=== PATIENT | male | born 1950 | race Caucasian/White ===

== ENCOUNTER 2016-12-25 20:27 | Emergency (ER) | payer OTHER ==
[2016-12-25 20:42] VITALS: BP 142/92; PULSE 59; TEMP 98.5; BMI 31.4
--- NOTE | 2016-12-25 22:13 | PDOC ---
History of Present Illness - General Chief Complaint: Injury Stated Complaint: FALL/INJURY Time Seen by Provider: 12/25/16 21:29 History Source: Patient Exam Limitations: No Limitations - History of Present Illness Initial Comments: 12/25/16 22:25 CHIEF COMPLAINT: right elbow pain that radiates to right shoulder fall a few weeks ago HISTORY OF PRESENT ILLNESS: Pt. is a 66-year-old male with a history of hypertension and hyperlipidemia here today with his and son due to patient falling approximately 3 weeks ago hitting his right elbow. Patient has a bony deformity slightly distal to right elbow. Patient reports that this area is painful. Patient also reports having pain in his right shoulder since the fall and is unable to raise his arm as he did in the past. He did not get any medical attention after the fall. He denies any numbness of right arm or hand. 12/25/16 22:29 12/25/16 22:32 Occurred: reports: other Severity: reports: moderate Pain Location: reports: upper extremity (rt. elbow area, rt. shoulder) Method of Injury: Yes: fall Modifying Factors: improves with: None Loss of Consciousness: no loss of consciousness Associated Symptoms (Fall): other (raised tender area slightly distal to rt. elbow) Past History - Past Medical History Allergies/Adverse Reactions: Allergies Allergy/AdvReac Type Severity Reaction Status Date / Time No Known Allergies Allergy Verified 12/25/16 20:36 Home Medications: Ambulatory Orders Simvastatin [Zocor -] 40 mg PO HS 06/06/12 Amlodipine Besylate [Norvasc -] 5 mg PO BID 07/24/16 Aspirin [ASA -] 81 mg PO DAILY 07/24/16 Naproxen [Naprosyn -] 500 mg PO BID PRN #13 tablet 12/25/16 Cardiac Disorders: Yes (IRREGULAR HEART BEAT) HTN: Yes Hypercholesterolemia: Yes - Immunization History Immunization Up to Date: No - Psycho/Social/Smoking Cessation Hx Anxiety: No Suicidal Ideation: No Smoking Status: Yes Smoking History: Never smoked Have you smoked in the past 12 months: No Number of Cigarettes Smoked Daily: 0 Information on smoking cessation initiated: No Hx Alcohol Use: No Drug/Substance Use Hx: No Substance Use Type: None Review of Systems - Review of Systems Able to Perform ROS?: Yes Constitutional: No: Symptoms Reported HEENTM: No: Symptoms Reported Respiratory: No: Symptoms reported Cardiac (ROS): No: Symptoms Reported ABD/GI: No: Symptoms Reported : No: Symptoms Reported Musculoskeletal: Yes: Joint Pain (rt. elbow area, rt. shoulder ), Joint Swelling (rt. elbow slightly distal to elbow ), Other (decreased range of motion rt. shoulder) Integumentary: No: Symptoms Reported Neurological: No: Symptoms reported *Physical Exam - Vital Signs Last Vital Signs Temp Pulse Resp BP Pulse Ox 98.5 F 59 L 18 142/92 96 12/25/16 20:33 12/25/16 20:33 12/25/16 20:33 12/25/16 20:33 12/25/16 20:33 - Physical Exam General Appearance: Yes: Appropriately Dressed Neck: negative: Tender, Lymphadenopathy (R), Lymphadenopathy (L), Rigidity, Tender lateral, Tender midline Comments:: 12/25/16 22:29 radial pulse 4 + rt. Musculoskeletal: positive: Normal Inspection. negative: CVA Tenderness, CVA Tenderness (R), CVA Tenderness (L), Decreased Range of Motion, Vertebral Tenderness Extremity: positive: Normal Capillary Refill, Tender (rt, shoulder, rt. elbow), Swelling (slightly distal to rt. elbow non mobile raised firm area palpated approx 2 cm diameter), Other. negative: Normal Range of Motion ( at rt. shoulder slight decreased, full range of motion rt. elbow) Integumentary: positive: Normal Color (rt.arm, hand ) Neurologic: positive: Alert, Normal Response, Respond to painful stimul (rt. arm /hand ). negative: Numbness, Sensory Deficit (rt, arm/hand ) ED Treatment Course - RADIOLOGY Radiology Studies Ordered: Category Date Time Status ELBOW-RIGHT [RAD] Stat Radiology 12/25/16 22:13 Ordered Medical Decision Making - Medical Decision Making 12/25/16 22:32 Pt. is a 66-year-old male with a history of hypertension and hyperlipidemia here today with his and son due to patient falling approximately 3 weeks ago hitting his right elbow. Patient has a bony deformity slightly distal to right elbow. Patient reports that this area is painful. Patient also reports having pain in his right shoulder since the fall and is unable to raise his arm as he did in the past. He did not get any medical attention after the fall. He denies any numbness of right arm or hand. Pain rt. shoulder pain rt. elbow R/O fracture rt. elbow, humerous, shoulder FALL PLAN: xray rt. shoulder bony no abnormality or fracture or dislocation noted per Dr. Amos xray rt. elbow acute fracture or dislocation noted. 8 mm accessory ossicle distal to medial epicondyles noted per Dr. Amos xray rt. humerous no fracture noted Naprosyn 500 mg po now than q12 hr prn pain # 13 Patient to follow up with orthopedist for further evaluation 12/25/16 22:55 *DC/Admit/Observation/Transfer Diagnosis at time of Disposition: Elbow pain, right Fall Qualifiers: Encounter type: initial encounter Qualified Code(s): W19.XXXA - Unspecified fall, initial encounter Shoulder pain, right Qualifiers: Chronicity: acute Qualified Code(s): M25.511 - Pain in right shoulder Upper arm pain Qualifiers: Laterality: right Qualified Code(s): M79.621 - Pain in right upper arm - Discharge Dispostion Disposition: HOME Condition at time of disposition: Stable - Referrals Referrals: STAFF,NOT ON [Primary Care Provider] - Samson Ayoub MD [Staff Physician] - - Patient Instructions Additional Instructions: Avoid strenuous activities using right arm Follow-up with orthopedist within the next 2 days for further evaluation told him that she was seen here prior Return to emergency room if symptoms worsen Patient voiced understanding of discharge instructions and all questions were answered
[2016-12-25] MEDS ORDERED: NAPROXEN 500 MG TABLET (FP) PO ONE (22:58)
[2016-12-25] MEDS ORDERED: NAPROXEN 500 MG TABLET (FP) ONE (22:59)
== END 2016-12-25 23:03 | disposition home or self-care (01) ==
LOC: SUPCPDRO 20:27 → JER 20:27
DX: M25.521 Pain in right elbow (principal); W18.30XA Fall on same level, unspecified, initial encounter; Y93.9 Activity, unspecified; Y92.9 Unspecified place or not applicable; I10 Essential (primary) hypertension; E78.5 Hyperlipidemia, unspecified; M79.621 Pain in right upper arm; R00.9 Unspecified abnormalities of heart beat
CPT/HCPCS: 73030-TC-RT; 73060-TC-RT; 73070-TC-RT; 99281-25

== ENCOUNTER 2017-01-29 06:06 | Day surgery (SDC) | payer OTHER ==
[2017-01-28 12:51] VITALS: BMI 32.1
[2017-01-29 06:53] LABS: MCH 27.1 pg (25.7-33.7); MCHC 34.7 g/dl (32.0-35.9); MEAN CELL VOLUME 78.2 fl (80-96); MEAN PLT VOLUME 9.6 fl (7.5-11.1); PLATELET COUNT 154 K/MM3 (134-434); RDW 14.4 % (11.9-15.9); WHITE BLOOD COUNT 6.9 K/mm3 (4.0-10.0)
[2017-01-29 06:56] LABS: URINE APPEARANCE CLEAR; URINE BILIRUBIN NEGATIVE (NEGATIVE); URINE BLOOD NEGATIVE (NEGATIVE); URINE COLOR STRAW; URINE GLUCOSE (UA) NEGATIVE (NEGATIVE); URINE KETONE NEGATIVE (NEGATIVE); URINE LEUK ESTERASE NEGATIVE (NEGATIVE); URINE NITRITE NEGATIVE (NEGATIVE); URINE PROTEIN NEGATIVE (NEGATIVE); URINE UROBILINOGEN NEGATIVE E.U./dl (0.2-1.0)
[2017-01-29] MEDS ORDERED: ROPIVACAINE HCL 0.5% 30ML VIAL ONE (07:12)
[2017-01-29] MEDS ORDERED: MIDAZOLAM HCL 2 MG/2 ML SINGLE DOSE VIAL ONE ×2 (07:14)
[2017-01-29] MEDS ORDERED: KETOROLAC TROMETHAMINE 30 MG/1 ML VIAL ONE (08:13)
[2017-01-29] MEDS ORDERED: ROCURONIUM BROMIDE 50 MG/5 ML VIAL ONE (08:13)
[2017-01-29] MEDS ORDERED: ceFAZolin SODIUM 1 GM VIAL ONE ×2 (08:13→11:32)
[2017-01-29] MEDS ORDERED: LIDOCAINE HCL/PF 2% SDV 5ML VIAL ONE (08:13)
[2017-01-29] MEDS ORDERED: ceFAZolin SODIUM 1 GM VIAL IVPB ONE (08:24)
[2017-01-29] MEDS ORDERED: GLYCOPYRROLATE 0.2 MG/1 ML VIAL ONE ×2 (09:36)
[2017-01-29] MEDS ORDERED: NEOSTIGMINE METHYLSULFATE 0.5 MG/ML - 10 ML MDV ONE (09:36)
--- NOTE | 2017-01-29 09:59 | HP ---
Satellite H - Chief Complaint Chief Complaint: right shoulder pain - Past Medical History Allergies/Adverse Reactions: Allergies Allergy/AdvReac Type Severity Reaction Status Date / Time No Known Allergies Allergy Verified 01/29/17 06:55 - Current Medications Current Medications: Home Medications Medication Instructions Recorded Aspirin [ASA -] 81 mg PO DAILY 07/24/16 Pravastatin Sodium [Pravachol -] 40 mg PO HS 01/28/17 Amlodipine Besylate/Benazepril 1 cap PO DAILY 01/29/17 [Lotrel 5-10 mg Capsule] Oxycodone HCl/Acetaminophen 1 - 2 tab PO Q6H #50 tab MDD 8 01/29/17 [Percocet 5-325 mg Tablet -] Satellite Physical Exam - Physical Examination Vital Signs: Vital Signs Period Temp Pulse Resp BP Sys/Palm Pulse Ox Last 24 Hr 98.0 F 62 18 149/89 98 General Appearance: Well Nourished, Well Developed, Alert & Oriented x3 ENT: Clear Lung: Normal air movement Heart: Regular rate & rhythm Extremities: Other (right shoulder- + ttp, decr rom, + neer, + broussard, + empty can, nvi MRI- + rct) Neurological: Intact, Alert, Oriented Satellite Impression/Plan - Impression/Plan Impression: right shoulder rct Operative Procedure: right shoulder arthroscopy with KATLIN MAGAÑA Date to be Performed: 01/29/17
--- NOTE | 2017-01-29 10:00 | OP ---
Operative Note - Note: Operative Date: 01/29/17 ([facility]) Pre-Operative Diagnosis: right shoulder rct Operation: right shoulder arthroscopy with RCR, SAD Post-Operative Diagnosis: Same as Pre-op Surgeon: Samson Ayoub Under Baster: Kenney Lutz Anesthesiologist/DISCHARGE DOOR OPERATOR: Colton Jones Anesthesia: General, Local Specimens Removed: shavings Estimated Blood Loss (mls): 10 Operative Report Dictated: Yes
[2017-01-29] MEDS ORDERED: PROMETHAZINE HCL 25 MG/1 ML VIAL IVPUSH PRN (10:01)
[2017-01-29] MEDS ORDERED: oxyCODONE HCL 5 MG TABLET PO PRN (10:01)
[2017-01-29] MEDS ORDERED: ONDANSETRON 4 MG/2 ML VIAL IVPUSH PRN (10:01)
[2017-01-29 10:38] VITALS: TEMP 97.5
[2017-01-29 12:30] VITALS: BP 140/77; PULSE 76
[2017-01-29] MEDS ORDERED: CEFAZOLIN 2 GM in DEXTROSE 5%-WATER - 50 ML IVPB ONE (13:00)
--- NOTE | 2017-01-29 14:05 | SPEC ---
DATE OF OPERATION: 01/29/2017 PREOPERATIVE DIAGNOSIS: Right rotator cuff tear. POSTOPERATIVE DIAGNOSIS: Right rotator cuff tear. PROCEDURES: Arthroscopy right shoulder with subacromial debridement of bone and soft tissue, and arthroscopic right rotator cuff repair with SpeedBridge double-row anchors. SURGEON: Samson Ayoub MD READING EFFICIENCY COURSE DIRECTOR: HARPER iRver ANESTHESIA: Regional and general. CLOSURE: A SpeedBridge with FiberWire, 3-0 nylon for skin. ESTIMATED BLOOD LOSS: Negligible. COMPLICATIONS: None. CONDITION: To recovery room in stable condition. DESCRIPTION OF OPERATIVE PROCEDURE: Patient was taken to the operating room on January 29, 2017. Regional block as well as general anesthesia was administered by the anesthesiologist. Intravenous Kefzol was administered prophylactically prior to the case. Patient was placed in the beach-chair position with all prominences well padded. The right shoulder area was prepped and draped in the usual sterile fashion. First, a diagnostic arthroscopy of the glenohumeral joint was performed. A posterior portal was made 2 fingerbreadths below the acromion, first with a 15 blade followed by a blunt trocar. Circumferential exam of the glenohumeral joint revealed the following: Intact glenoid and humeral articular cartilage, intact labrum circumferentially, intact biceps and biceps anchor. There were no loose bodies in the axillary pouch. Intact subscapularis to its insertion. Looking superiorly, the shoulder had a rotator cuff tear in a crescent formation. The trocar was removed from the shoulder. Next, the posterior trocar was redirected in the subacromial space. An accessory lateral portal was made using a 15 blade followed by a blunt trocar. An anterior portal was made at the level of the AC joint with a spinal needle, a 15 blade, and a blunt trocar. An extensive bursectomy and debridement of soft tissue encasing the humeral head was performed using the ArthroCare device and the shaver. Extensive bone hanging down from the acromion was debrided using the Acromionizer bhakti up to the appropriate level. The coracoacromial ligament was identified and detached off the anterior acromion and visualized to drop inferiorly and was further debrided. An acromioplasty was then performed using the Acromionizer bhakti up to the appropriate level. All articular debris in the shoulder was debrided using the shaver. Soft tissue encasing the rotator cuff was debrided using the shaver and the ArthroCare device exposing the rotator cuff tear beneath. The leading edge of the rotator cuff was debrided using the shaver. The greater tuberosity was cleaned of soft tissue, and a thin layer of bone was removed giving a nice bleeding surface for the rotator cuff repair. Two medial row anchors with pre-loaded FiberTape suture were malleted down at the articular margin and shuttled through the anterior portal. Each anchor had two limbs of the FiberTape suture. Individually, they were shuttled back to the lateral portal. They were passed in a fanned-out position through the rotator cuff using the iHook[employer] suture passer. After this was done, one of the posterior sutures was passed more anteriorly and one of the anterior sutures was passed posteriorly. They were both passed through the eyelet hole of the lateral anchors and then malleted and screwed into place, both anteriorly and posteriorly. This pulled the rotator cuff down and matted it down to the greater tuberosity. The sutures were cut snug. Probing revealed excellent repair of the rotator cuff to the greater tuberosity. The shoulder was irrigated with copious amounts of irrigation. All three portals were closed with 3-0 nylon. A sterile pressure dressing following by a shoulder immobilizer was placed on the right upper extremity. The patient was awakened from anesthesia and transferred to the recovery room in stable condition. No complications. Estimated blood loss was negligible. Mariya SANDOVAL/[id number]
--- NOTE | 2017-01-30 14:56 | PATH ---
Surgical Pathology Report Patient Name: DANETTE POE [facility]. Rec. #: [id number] /Age/Gender: 1950 (Age: 66) / M Account: [id number] Location: [facility] SURGICAL Taken: 01/29/2017 Received: 01/29/2017 Reported: 01/30/2017 Physicians: Samson Ayoub M.D. Specimen(s) Received SHAVINGS RIGHT SHOULDER Clinical History Impingement syndrome, rotator cuff tear right shoulder Final Diagnosis SOFT TISSUE, RIGHT SHOULDER, ARTHROSCOPIC SHAVINGS: SYNOVIUM AND FIBROCARTILAGE WITH MYXOHYALINE DEGENERATION. FRAGMENTS OF UNREMARKABLE BONE AND SKELETAL MUSCLE. Electronically Signed Carroll Ledesma M.D. Gross Description Received in formalin, labeled "right shoulder shavings" is a 4.0 x 3.2 x 0.4 cm. aggregate of eli-yellow soft tissue fragments. A dental sales representative portion is submitted in one cassette. /01/29/201701/29/2017
== END 2017-01-29 12:30 | disposition home or self-care (01) ==
LOC: JASU-SURG 06:06
PROVIDERS: ATTEND Orthopaedic Surgery
PROC: 0RNJ4ZZ Release Right Shoulder Joint, Percutaneous Endoscopic Approach (ICD-10-PCS; principal; 2017-01-29 08:00)
PROC: 0LQ14ZZ Repair Right Shoulder Tendon, Percutaneous Endoscopic Approach (ICD-10-PCS; 2017-01-29 08:00)
DX: M75.101 Unspecified rotator cuff tear or rupture of right shoulder, not specified as traumatic (principal)
CPT/HCPCS: 36415; 81003; 85027; 88304-TC; 94760

== ENCOUNTER 2017-04-02 13:19 | Emergency (ER) | payer OTHER ==
[2017-04-02 13:23] VITALS: BP 153/98; PULSE 75; TEMP 98.4; BMI 32.1
[2017-04-02] MEDS ORDERED: OXYCODONE/APAP 5/325MG COMBO TABLET PO ONE (14:03)
[2017-04-02] MEDS ORDERED: OXYCODONE/APAP 5/325MG COMBO TABLET ONE (14:07)
--- NOTE | 2017-04-02 14:19 | PDOC ---
History of Present Illness - General Chief Complaint: Injury Stated Complaint: FALL/ BACK PAIN Time Seen by Provider: 04/02/17 13:30 History Source: Patient Exam Limitations: No Limitations - History of Present Illness Initial Comments: 04/02/17 14:08 My chief complaint: fall on stairs pain left shoulder, left lower back, posterior rib left sided History of present illness: Patient is a 66-year-old male with a history of hypertension, hyperlipidemia, and right rotator cuff trickle repair 01/29/2017 here today due to falling down 2 stairs trying to avoid putting any pressure on his right arm patient braced his fall with his left arm and hit his left lower back area on steps and also hit his head. Patient did not have any loss of consciousness is not nauseous, no dizziness, change in vision or level of alertness or any hemotympanum. Patient also hit his left elbow however has minimal pain in his left elbow. Patient reports that pain in left shoulder is currently a 5 and pain in the left posterior rib and lower back area is a 10 out of 10 aching in nature. Patient took naproxen earlier today. Patient reports that pain in his posterior left rib area is worse with deep breathing or any movement. Patient has decreased range of motion in his left shoulder that he did not have prior to fall. Patient denies any neck pain or any headache. Fall R/O fractured rib left sided r/o fracture left shoulder abrasion left posterior lower back PLAN: xray left rib series xray left shoulder percocet 5mg/325 mg po now 04/02/17 16:44 Occurred: reports: just prior to arrival Severity: reports: severe (LEFT POSTERIOR LOWER RIB, BACK PAIN, LEFT SHOULDER AND MINIMAL LEFT ELBOW ) Pain Location: reports: back (LEFT LUMBAR ), other (LEFT POSTERIOR RIB, ), upper extremity (LEFT SHOULDER) Method of Injury: Yes: fall Modifying Factors: improves with: immobilization Loss of Consciousness: no loss of consciousness Associated Symptoms (Fall): denies symptoms Past History - Past Medical History Allergies/Adverse Reactions: Allergies Allergy/AdvReac Type Severity Reaction Status Date / Time No Known Allergies Allergy Verified 04/02/17 13:23 Home Medications: Ambulatory Orders Aspirin [ASA -] 81 mg PO DAILY 07/24/16 Amlodipine Besylate/Benazepril [Lotrel 5-10 mg Capsule] 1 cap PO DAILY 01/29/17 Oxycodone HCl/Acetaminophen [Percocet 5-325 mg Tablet -] 1 - 2 tab PO Q6H #50 tab MDD 8 01/29/17 Atorvastatin Ca [Lipitor] 40 mg PO HS 04/02/17 Naproxen [Naprosyn -] 500 mg PO BID 04/02/17 Anemia: No Asthma: No Cancer: No Cardiac Disorders: No CVA: No COPD: No CHF: No Dementia: No Diabetes: No GI Disorders: No Disorders: No HTN: Yes Hypercholesterolemia: Yes Liver Disease: No Seizures: No Thyroid Disease: No - Surgical History Orthopedic Surgery: Yes (RIGHT ROTATOR CUFF REPAIR 01/29/17) - Immunization History Immunization Up to Date: No - Psycho/Social/Smoking Cessation Hx Anxiety: No Suicidal Ideation: No Smoking Status: Yes Smoking History: Never smoked Have you smoked in the past 12 months: No Number of Cigarettes Smoked Daily: 0 Hx Alcohol Use: No Drug/Substance Use Hx: No Substance Use Type: None Hx Substance Use Treatment: No Review of Systems - Review of Systems Able to Perform ROS?: Yes Constitutional: No: Symptoms Reported HEENTM: No: Symptoms Reported Respiratory: No: Symptoms reported Cardiac (ROS): No: Symptoms Reported ABD/GI: No: Symptoms Reported : No: Symptoms Reported Musculoskeletal: Yes: Joint Pain (left shoulder, left and minimal left elbow ) , Other (left posterior rib pain and lower back pain not midline ). No: Neck Pain Integumentary: Yes: Other (abrasion posterior left lower back ) Neurological: No: Symptoms reported *Physical Exam - Vital Signs Last Vital Signs Temp Pulse Resp BP Pulse Ox 98.4 F 75 20 153/98 97 04/02/17 13:21 04/02/17 13:21 04/02/17 13:21 04/02/17 13:21 04/02/17 13:21 - Physical Exam General Appearance: Yes: Appropriately Dressed HEENT: positive: EOMI, JOHN Neck: negative: Tender, Lymphadenopathy (R), Lymphadenopathy (L), Rigidity, Tender lateral, Tender midline Respiratory/Chest: positive: Lungs Clear, Normal Breath Sounds. negative: Chest Tender, Respiratory Distress Cardiovascular: positive: Regular Rhythm, Regular Rate, S1, S2 Musculoskeletal: positive: Normal Inspection, Decreased Range of Motion (at waist ), Other (tenderness left lower posterior rib area ). negative: CVA Tenderness, CVA Tenderness (R), Vertebral Tenderness (no midline tenderness, left sided lower back pain ) Extremity: positive: Normal Capillary Refill, Normal Inspection, Tender (left shoulder, minimal left elbow). negative: Normal Range of Motion (left shoulder ) Integumentary: positive: Other (abrasion left lower back superficial approx 10 cm x 8 cm ) Neurologic: positive: Fully Oriented, Alert, Normal Response, Motor Strength 5/ 5 (left arm/hand), Respond to painful stimul (left arm), Responsive. negative: Numbness, Sensory Deficit (left arm/hand) Procedures - Consent Consent obtained: Verbal, From Patient - Additional Procedures Progress: 04/02/17 18:12 Abrasion on left sided lower back cleansed with Betadine and normal saline 0.9% dried and small amount of bacitracin ointment applied Medical Decision Making - Medical Decision Making 04/02/17 16:44 04/02/17 16:44 Patient is a 66-year-old male with a history of hypertension, hyperlipidemia, and right rotator cuff trickle repair 01/29/2017 here today due to falling down 2 stairs trying to avoid putting any pressure on his right arm patient braced his fall with his left arm and hit his left lower back area on steps and also hit his head. Patient did not have any loss of consciousness is not nauseous, no dizziness, change in vision or level of alertness or any hemotympanum. Patient also hit his left elbow however has minimal pain in his left elbow. Patient reports that pain in left shoulder is currently a 5 and pain in the left posterior rib and lower back area is a 10 out of 10 aching in nature. Patient took naproxen earlier today. Patient reports that pain in his posterior left rib area is worse with deep breathing or any movement. Patient has decreased range of motion in his left shoulder that he did not have prior to fall. Patient denies any neck pain or any headache. Fall R/O fractured rib left sided r/o fracture left shoulder abrasion left posterior lower back LEFT SIDED POSTERIOR RIB CONTUSION LEFT SHOULDER INJURY PLAN: xray left rib series no acut pathology noted per for Rollae fracture noted per Dr. Orellana xray left shoulder no acute keven pathology notd, no evidence of glenhumeral jt dislocation xrary lumbar/sacral spine degenerative arthritis changes are noted diffusely mostly marked at L1-2, no fracture or acute bony abnormality as per Dr. Orellana percocet 5mg/325 mg po now Will follow-up with Dr. Ayoub as soon as possible for further evaluation patient has Naprosyn and Percocet at home 04/02/17 18:16 04/02/17 18:17 *DC/Admit/Observation/Transfer Diagnosis at time of Disposition: Fall (on) (from) other stairs and steps, initial encounter, Abrasion Shoulder injury Qualifiers: Encounter type: initial encounter Laterality: left Qualified Code(s): S49.92XA - Unspecified injury of left shoulder and upper arm, initial encounter Contusion of rib on left side Qualifiers: Encounter type: initial encounter Qualified Code(s): S20.212A - Contusion of left front wall of thorax, initial encounter Diagnosis at time of Disposition: (Ruled Out): Fall (on) (from) other stairs and steps, sequela - Discharge Dispostion Disposition: HOME Condition at time of disposition: Stable - Referrals Referrals: STAFF,NOT ON [Primary Care Provider] - - Patient Instructions Additional Instructions: FOLLOW UP WITH ORTHOPEDIST SOON POSSIBLE FOR FURTHER EVALUATION AVOID ANY STRENOUS ACTIVITIES RETURN TO EMERGENCY ROOM IF SYMPTOMS WORSEN OR ANY NEW SYMPTOMS DEVELOP TAKE NAPROSYN NEEDED AND PERCOCET PREVIOUSLY ORDERED CLEANSE ABRASION WITH ANTIBACTERIAL SOAP AND WATER, DRY AREA AND APPLY BACITRACIN OINTMENT TWICE DAILY PATIENT VOICED UNDERSTANDING OF DISCHARGE INSTRUCTIONS AND ALL QUESTIONS WERE ANSWERED - Post Discharge Activity Work/School Note: Back to Work, Parent(s) Back to Work Note
[2017-04-02] MEDS ORDERED: BACITRACIN 15 GM TUBE TOPICAL OINTMENT ONE (14:57)
== END 2017-04-02 17:15 | disposition home or self-care (01) ==
LOC: JERFT 13:19
DX: S49.92XA Unspecified injury of left shoulder and upper arm, initial encounter (principal); S20.212A Contusion of left front wall of thorax, initial encounter; W10.9XXA Fall (on) (from) unspecified stairs and steps, initial encounter; Y93.89 Activity, other specified; Y92.9 Unspecified place or not applicable
CPT/HCPCS: 71101-TC; 72100-TC; 73030-TC-LT; 99281-25

== ENCOUNTER 2017-04-06 23:39 | Emergency (ER) | payer OTHER ==
[2017-04-06 23:56] VITALS: BP 143/97; PULSE 80; TEMP 98.1; BMI 32.1
--- NOTE | 2017-04-07 01:50 | PDOC ---
History of Present Illness - General Chief Complaint: Back Pain Stated Complaint: BACK PAIN Time Seen by Provider: 04/07/17 01:44 History Source: Patient, Significant Other () Exam Limitations: Language Barrier - History of Present Illness Initial Comments: 04/07/17 01:45 Patient is a 66 year old with history of HTN and HLD who was here three days ago s/p a fall down three steps and is returning today c/o persistent back pain. Pain is sharp, 8/10, aggravated by laying flat and partially relieved with sitting up. Minimal relief with percocet and, for the last day, associated with chest pain, SOB and abdominal pain. The chest pain is left sided , proportional the the severity of the back pain and not aggravated or alleviated by activity or position. The abdominal pain is epigastric, non radiating and seems directly related to the back pain. SOB occurs primarily with patient is laying down and is unable to take a full breath because of the pain. states the patient has not been able to seep at all for the last three days because he is unable to lay flat. When he does, he is unable to breath and unable to get up again. Patient also endorses occasional bloody specks in his phlegm. PCP: Aakash Oneil Past History - Past Medical History Allergies/Adverse Reactions: Allergies Allergy/AdvReac Type Severity Reaction Status Date / Time No Known Allergies Allergy Verified 04/06/17 23:56 Home Medications: Ambulatory Orders Aspirin [ASA -] 81 mg PO DAILY 07/24/16 Amlodipine Besylate/Benazepril [Lotrel 5-10 mg Capsule] 1 cap PO DAILY 01/29/17 Oxycodone HCl/Acetaminophen [Percocet 5-325 mg Tablet -] 1 - 2 tab PO Q6H #50 tab MDD 8 01/29/17 Atorvastatin Ca [Lipitor] 40 mg PO HS 04/02/17 Naproxen [Naprosyn -] 500 mg PO BID 04/02/17 Ibuprofen [Motrin -] 600 mg PO TID #30 tablet 04/07/17 Methocarbamol [Robaxin -] 500 mg PO TID #30 tablet 04/07/17 Polyethylene Glycol 3350 [Miralax (For Daily Use) -] 17 gm PO DAILY #1 bottle Anemia: No Asthma: No Cancer: No Cardiac Disorders: No CVA: No COPD: No CHF: No Dementia: No Diabetes: No GI Disorders: No Disorders: No HTN: Yes Hypercholesterolemia: Yes Liver Disease: No Seizures: No Thyroid Disease: No - Surgical History Orthopedic Surgery: Yes (RIGHT ROTATOR CUFF REPAIR 01/29/17) - Immunization History Immunization Up to Date: No - Psycho/Social/Smoking Cessation Hx Anxiety: No Suicidal Ideation: No Smoking Status: Yes Smoking History: Never smoked Have you smoked in the past 12 months: No Number of Cigarettes Smoked Daily: 0 Hx Alcohol Use: No Drug/Substance Use Hx: No Substance Use Type: None Hx Substance Use Treatment: No Review of Systems - Review of Systems Able to Perform ROS?: Yes Is the patient limited Malian proficient: Yes Constitutional: No: Chills, Diaphoresis, Fever HEENTM: No: Recent change in vision, Double Vision, Hearing Loss Respiratory: Yes: Shortness of Breath (Difficulty taking a deep breath.) Cardiac (ROS): Yes: Chest Pain. No: Edema, Lightheadedness, Palpitations, Syncope ABD/GI: Yes: Other (Epigastric pain). No: Constipated, Diarrhea, Nausea, Vomiting Musculoskeletal: Yes: Back Pain (Left side, just inferior to the left scapula) Integumentary: Yes: Bruising (mild bruise on back) Neurological: No: Headache, Paresthesia *Physical Exam - Vital Signs Last Vital Signs Temp Pulse Resp BP Pulse Ox 98.1 F 80 18 143/97 95 04/06/17 23:52 04/06/17 23:52 04/06/17 23:52 04/06/17 23:52 04/06/17 23:52 - Physical Exam General Appearance: Yes: Nourished, Appropriately Dressed, Obese. No: Apparent Distress HEENT: positive: EOMI, JOHN, Normal Voice Neck: positive: Supple Respiratory/Chest: positive: Lungs Clear, Normal Breath Sounds. negative: Chest Tender Cardiovascular: positive: Regular Rhythm, Regular Rate. negative: JVD, Murmur Gastrointestinal/Abdominal: positive: Normal Bowel Sounds (x4), Soft, Protuberent. negative: Tender, Distended, Guarding, Rebound Musculoskeletal: positive: CVA Tenderness (Left), Other (Lower left ribs tender to palpation). negative: Vertebral Tenderness Extremity: positive: Normal Capillary Refill, Normal Inspection Integumentary: positive: Normal Color, Dry, Warm, Other (small ecchymosis on left back consistent with fall on stairs) Neurologic: positive: superintendent recreation II-XII NML intact, Fully Oriented, Alert, Normal Mood/ Affect, Motor Strength 01/10 ED Treatment Course - LABORATORY CBC & Chemistry Diagram: 04/07/17 02:45 04/07/17 02:45 Medical Decision Making - Medical Decision Making 04/07/17 03:08 66 year old male with recent fall on back and negative workup three days ago returning with continued pain at the location where he landed on his back and new associated pain in chest and abdomen and difficulty laying down and breathing. All associated symptoms appear directly tied to the back pain however patient has risk factors for CAD. Ddx includes but is not limited to muscle bruising, muscle spasms, cardiac pathology, PE, pneumothorax Plan: Cardiac workup Basic labs, coags Pain control GI cocktail Assess patients response to muscle relaxants Monitor and reassess Patient not in respiratory distress, saturating well and breath sounds are wnl. 04/07/17 03:14 EKG: bradycardia with first degree heart block and non specific repolarization changes but no significant changes from previous EKG on 04/05/2012. CBC WBC 6.9 K/mm3 (4.0-10.0) 04/07/17 02:45 RBC 4.84 M/mm3 (4.00-5.60) 04/07/17 02:45 Hgb 12.8 GM/dL (11.7-16.9) 04/07/17 02:45 Hct 38.0 % (35.4-49) 04/07/17 02:45 MCV 78.4 fl (80-96) L 04/07/17 02:45 MCH 26.3 pg (25.7-33.7) 04/07/17 02:45 MCHC 33.6 g/dl (32.0-35.9) 04/07/17 02:45 RDW 14.9 % (11.9-15.9) 04/07/17 02:45 Plt Count 180 K/MM3 (134-434) 04/07/17 02:45 MPV 8.9 fl (7.5-11.1) 04/07/17 02:45 Neutrophils % 39.4 % (42.8-82.8) L 04/07/17 02:45 Lymphocytes % 46.5 % (8-40) H 04/07/17 02:45 Monocytes % 8.9 % (3.8-10.2) 04/07/17 02:45 Eosinophils % 4.1 % (0-4.5) 04/07/17 02:45 Basophils % 1.1 % (0-2.0) 04/07/17 02:45 grossly within normal limits CMP Sodium 139 mmol/L (136-145) 04/07/17 02:45 Potassium 4.2 mmol/L (3.5-5.1) 04/07/17 02:45 Chloride 107 mmol/L (98-107) 04/07/17 02:45 Carbon Dioxide 25 mmol/L (21-32) 04/07/17 02:45 Anion Gap 7 (8-16) L 04/07/17 02:45 BUN 17 mg/dL (7-18) 04/07/17 02:45 Creatinine 1.0 mg/dL (0.7-1.3) 04/07/17 02:45 Creat Clearance w eGFR > 60 (>60) 04/07/17 02:45 Random Glucose 133 mg/dL (74-106) H D 04/07/17 02:45 Calcium 9.4 mg/dL (8.5-10.1) 04/07/17 02:45 Total Bilirubin 0.4 mg/dL (0.2-1.0) 04/07/17 02:45 AST 17 U/L (15-37) D 04/07/17 02:45 ALT 21 U/L (12-78) D 04/07/17 02:45 Alkaline Phosphatase 100 U/L (45-117) D 04/07/17 02:45 Creatine Kinase 242 IU/L (39-308) 04/07/17 02:45 Creatine Kinase Index 0.6 % (0.0-5.0) 04/07/17 02:45 CK-MB (CK-2) 1.530 ng/mL (0.5-3.6) 04/07/17 02:45 Troponin I < 0.02 ng/ml (0.00-0.05) 04/07/17 02:45 Total Protein 6.4 g/dl (6.4-8.2) 04/07/17 02:45 Albumin 3.7 g/dl (3.4-5.0) 04/07/17 02:45 Cardiac enzymes within normal limits No other concerning abnormalities INR within normal limits. Patient is responding well to pain medication, GI cocktail and anti spasmotics. Up and ambulating and asking when he can go home. Patient discharged with prescription for Miralax, Robaxin and Motrin *DC/Admit/Observation/Transfer Diagnosis at time of Disposition: Muscle spasm - Discharge Dispostion Disposition: HOME Admit: No - Prescriptions Prescriptions: Polyethylene Glycol 3350 [Miralax (For Daily Use) -] 17 gm PO DAILY #1 bottle Ibuprofen [Motrin -] 600 mg PO TID #30 tablet Methocarbamol [Robaxin -] 500 mg PO TID #30 tablet - Referrals Referrals: STAFF,NOT ON [Primary Care Provider] - - Patient Instructions Printed Discharge Instructions: DI for Muscle Strain Additional Instructions: Thank you for trusting us with your care today. I hope you were happy with the care we provided. As we discussed the tests we perform in the emergency department do not always identify the exact cause of a problem. Our goal is to rule out serious problems. The tests we ran today did not show anything concerning that could be causing your back pain. Often, following trauma, muscles can get tight and spasm and this can cause pain. We have provided you with a prescription for a muscle relaxant that may help with your pain. If you continue to have back pain, you should follow up with your primary care physician. If you significantly worse pain or start having chest pain or shortness of breath, please return to the emergency department immediately or call 911. Print Language: MONGOLIAN - Attestations Physician Attestion: 04/07/17 04:20 I, Dr. Sudhir Marroquin, attest that this document has been prepared under my direction and personally reviewed by me in its entirety. I further attest, that it accurately reflects all work, treatment, procedures and medical decision -making performed by me.
[2017-04-07] MEDS ORDERED: KETOROLAC TROMETHAMINE 30 MG/1 ML VIAL IVPUSH ONE (02:36)
[2017-04-07] MEDS ORDERED: METHOCARBAMOL 500 MG TABLET PO ONE (02:38)
[2017-04-07] MEDS ORDERED: FAMOTIDINE 20 MG/50 ML IVPB 50 ML IVPB ONE ×2 (02:39→02:52)
[2017-04-07] MEDS ORDERED: KETOROLAC TROMETHAMINE 30 MG/1 ML VIAL ONE (02:52)
[2017-04-07] MEDS ORDERED: MAG HYDROX/AL HYDROX/SIMETH 30 ML UNIT-DOSE CUP ONE (02:52)
[2017-04-07] MEDS ORDERED: METHOCARBAMOL 500 MG TABLET ONE (02:53)
[2017-04-07 03:06] LABS: BASOPHIL 1.1 % (0-2.0); EOSINOPHIL 4.1 % (0-4.5); MCH 26.3 pg (25.7-33.7); MCHC 33.6 g/dl (32.0-35.9); MEAN CELL VOLUME 78.4 fl (80-96); MEAN PLT VOLUME 8.9 fl (7.5-11.1); NEUTROPHILS 39.4 % (42.8-82.8); PLATELET COUNT 180 K/MM3 (134-434); RDW 14.9 % (11.9-15.9); WHITE BLOOD COUNT 6.9 K/mm3 (4.0-10.0)
[2017-04-07 03:21] LABS: INR 0.99 (0.82-1.09); PROTHROMBIN TIME (PATIENT) 10.9 SEC (9.98-11.88)
[2017-04-07 03:34] LABS: ALBUMIN 3.7 g/dl (3.4-5.0); ANION GAP 7 (8-16); BILIRUBIN,TOTAL 0.4 mg/dL (0.2-1.0); CALCIUM 9.4 mg/dL (8.5-10.1); CO2 25 mmol/L (21-32); GLUCOSE,RANDOM 133 mg/dL (74-106); SGOT/AST 17 U/L (15-37); SGPT/ALT 21 U/L (12-78); TOT PROT 6.4 g/dl (6.4-8.2)
[2017-04-07 03:37] LABS: ALK PHOS 100 U/L (45-117); CPK 242 IU/L (39-308); TROPONIN I < 0.02 ng/ml (0.00-0.05)
--- NOTE | 2017-04-07 03:44 | PDOC ---
Attending Attestation - Resident Resident Name: Sudhir Marroquin - HPI HPI: 04/07/17 05:51 Pt comes with chest pain and body pains after fall down steps. - Physicial Exam PE: 04/07/17 05:52 Pt has bruising over his left flank and lower posterior ribs. Agree with resident's exam - Medical Decision Making 04/07/17 05:52 Labs normal. EKG normal. Pt improved with analgesics. Home with NSAID and muscle relaxant. Pt has percocet form his initial hospital visit for the fall down steps. He states that he is constipated so I will prescribe miralax.
[2017-04-07] MEDS ORDERED: LACTULOSE 20 GM/30 ML UDC (FOR ORAL USE ONLY) PO ONE (04:15)
[2017-04-07] MEDS ORDERED: LACTULOSE 20 GM/30 ML UDC (FOR ORAL USE ONLY) ONE (04:23)
--- NOTE | 2017-04-07 09:50 | EKG ---
Test Reason : Blood Pressure : / mmHG Vent. Rate : 058 BPM Atrial Rate : 058 BPM P-R Int : 216 ms QRS Dur : 114 ms QT Int : 422 ms P-R-T Axes : 048 -20 013 degrees QTc Int : 414 ms SINUS BRADYCARDIA WITH 1ST DEGREE A-V BLOCK MINIMAL VOLTAGE CRITERIA FOR LVH, MAY BE NORMAL VARIANT BORDERLINE ECG WHEN COMPARED WITH ECG OF 06-JUN-2012 13:00, PREMATURE VENTRICULAR COMPLEXES ARE NO LONGER PRESENT SD INTERVAL HAS INCREASED Confirmed by STEVE KENNEY MD ([id number]) on 04/07/2017 9:49:48 AM Referred By: Confirmed By:STEVE KENNEY MD
== END 2017-04-07 05:07 | disposition home or self-care (01) ==
LOC: JER 23:39
PROC: 3E033GC Introduction of Other Therapeutic Substance into Peripheral Vein, Percutaneous Approach (ICD-10-PCS; principal; 2017-04-06)
PROC: 3E0333Z Introduction of Anti-inflammatory into Peripheral Vein, Percutaneous Approach (ICD-10-PCS; 2017-04-06)
DX: M54.5 Low back pain (principal); M62.830 Muscle spasm of back; I10 Essential (primary) hypertension; E78.00 Pure hypercholesterolemia, unspecified; W10.8XXD Fall (on) (from) other stairs and steps, subsequent encounter
CPT/HCPCS: 36415; 80053; 84484; 85025; 85610; 93005; 93010; 96365; 96375; 99282-25

== ENCOUNTER 2017-05-10 12:44 | Emergency (ER) | payer OTHER ==
[2017-05-10 12:57] VITALS: BP 130/87; PULSE 81; TEMP 97.6; BMI 32.1
--- NOTE | 2017-05-10 13:55 | PDOC ---
History of Present Illness - General Chief Complaint: Pain Stated Complaint: BACK PAIN Time Seen by Provider: 05/10/17 13:41 History Source: Patient Exam Limitations: No Limitations - History of Present Illness Initial Comments: 05/10/17 14:00 Chief complaint: Left lower back pain over the rib area History of present illness: Patient is a 67-year-old male with a history of hypertension, hyperlipidemia and intermittent constipation here today with continuous complaints of having pain in his left lower back rib area with lying on his left side of his back. Patient denies any radiation of pain down the legs. Patient denies having pain with any movement of his upper torso when he is sitting up. Patient denies any difficulty urinating or blood in urine. Patient had fallen on 04/02/2017 on stairs hitting his left flank area patient was seen here in emergency room had rib x-rays that were negative. Patient came back on 04/06/2017 continue to complain of left flank and lower posterior rib area pain. Patient had followed up with Dr. Ayoub due to patient having had rotator cuff surgery on 01/29/17 of his rt shoulder after being seen here on . Patient denies any difficulty breathing or any shortness of breath. 05/10/17 14:05 Timing/Duration: intermittent (with lying on left side of back ) Severity: moderate Associated Symptoms: reports: denies symptoms Past History - Past Medical History Allergies/Adverse Reactions: Allergies Allergy/AdvReac Type Severity Reaction Status Date / Time No Known Allergies Allergy Verified 05/10/17 12:48 Home Medications: Ambulatory Orders Aspirin [ASA -] 81 mg PO DAILY 07/24/16 Amlodipine Besylate/Benazepril [Lotrel 5-10 mg Capsule] 1 cap PO DAILY 01/29/17 Oxycodone HCl/Acetaminophen [Percocet 5-325 mg Tablet] 1 - 2 tab PO Q6H #50 tab MDD 8 01/29/17 Atorvastatin Ca [Lipitor] 40 mg PO HS 04/02/17 Ibuprofen [Motrin -] 600 mg PO TID #30 tablet 04/07/17 Methocarbamol [Robaxin -] 500 mg PO TID #30 tablet 04/07/17 Polyethylene Glycol 3350 [Miralax 119 gm Btl -] 17 gm PO DAILY #1 bottle Naproxen [Naprosyn -] 500 mg PO BID PRN #14 tablet MDD 2 05/10/17 Anemia: No Asthma: No Cancer: No Cardiac Disorders: No CVA: No COPD: No CHF: No Dementia: No Diabetes: No GI Disorders: No Disorders: No HTN: Yes Hypercholesterolemia: Yes Liver Disease: No Seizures: No Thyroid Disease: No - Surgical History Orthopedic Surgery: Yes (RIGHT ROTATOR CUFF REPAIR 01/29/17) - Immunization History Immunization Up to Date: No - Psycho/Social/Smoking Cessation Hx Anxiety: No Suicidal Ideation: No Smoking Status: Yes Smoking History: Never smoked Have you smoked in the past 12 months: No Number of Cigarettes Smoked Daily: 0 Information on smoking cessation initiated: No Hx Alcohol Use: No Drug/Substance Use Hx: No Substance Use Type: None Hx Substance Use Treatment: No Review of Systems - Review of Systems Able to Perform ROS?: Yes Constitutional: No: Symptoms Reported HEENTM: No: Symptoms Reported Respiratory: No: Symptoms reported Cardiac (ROS): No: Symptoms Reported ABD/GI: No: Symptoms Reported : No: Symptoms Reported Musculoskeletal: Yes: Joint Pain (left posterior back with lying ) Integumentary: No: Symptoms Reported *Physical Exam - Vital Signs Last Vital Signs Temp Pulse Resp BP Pulse Ox 97.6 F 81 18 130/87 100 05/10/17 12:48 05/10/17 12:48 05/10/17 12:48 05/10/17 12:48 05/10/17 12:48 - Physical Exam General Appearance: Yes: Appropriately Dressed Respiratory/Chest: positive: Lungs Clear, Normal Breath Sounds. negative: Chest Tender, Respiratory Distress Cardiovascular: positive: Regular Rhythm, Regular Rate, S1, S2 Gastrointestinal/Abdominal: positive: Normal Bowel Sounds, Soft. negative: Tender, Organomegaly, Distended, Guarding, Rebound, Tenderness, Hepatomegaly, Spleenomegaly Musculoskeletal: positive: Normal Inspection, Other (left posterior rib area tenderness ). negative: CVA Tenderness, CVA Tenderness (R), CVA Tenderness (L) , Vertebral Tenderness Integumentary: positive: Normal Color Medical Decision Making - Medical Decision Making 05/10/17 14:03 Patient is a 67-year-old male with a history of hypertension, hyperlipidemia and intermittent constipation here today with continuous complaints of having pain in his left lower back rib area with lying on his left side of his back. Patient denies any radiation of pain down the legs. Patient denies having pain with any movement of his upper torso when he is sitting up. Patient denies any difficulty urinating or blood in urine. Patient had fallen on 03/31/2017 on stairs hitting his left flank area patient was seen here in emergency room had rib x-rays that were negative. Patient came back on 04/06/2017 continue to complain of left flank and lower posterior rib area pain. Patient had followed up with Dr. Ayoub due to patient having had rotator cuff surgery on 01/29/17 of his left shoulder after being seen here on 03/31/2017. Patient denies any difficulty breathing or any shortness of breath. Left posterior back pain with lying will do repeat rib xray left sided FRACTURE LEFT 8TH AND 9 TH RIB AND LEFT SCAPULAR LEFT RENAL CALCULI PLAN: xray left rib series negative for fracture CT of abdomen and pelvis to rule out renal calculi obtained patient has a fracture of his left eighth and ninth ribs and a fracture of the tip of his left scapular which are likely healing fractures. Patient also has a small intramural stone in the anterior bladder wall any 3MM nonobstructing stone in the mid left kidney and lower pole extophytic cyst. there is a 1 cm likely cyst left lobe of liver. colonic diverticulosis peredominantly signoid colon without eveidence of acute diverticulitis. enlarged prostate containing multiple calcifications per Dr. Domenic Tam [facility] pt. to follow up with [facility] FOLLOW UP WITH UROLOGY FOLLOW UP WITH ORTHOPEDIST TAKE NAPROSYN 500 MG BID PRN PAIN # 14 TABS 05/10/17 18:29 05/10/17 18:48 *DC/Admit/Observation/Transfer Diagnosis at time of Disposition: Renal calculus, left Left rib fracture Qualifiers: Encounter type: initial encounter Rib fracture type: multiple ribs Fracture type: closed Qualified Code(s): S22.42XA - Multiple fractures of ribs, left side , initial encounter for closed fracture Scapular fracture Qualifiers: Encounter type: subsequent encounter Scapula location: other part of scapula Fracture type: closed Laterality: left Fracture healing: with routine healing Qualified Code(s): S42.192D - Fracture of other part of scapula, left shoulder, subsequent encounter for fracture with routine healing - Discharge Dispostion Disposition: HOME Condition at time of disposition: Stable - Prescriptions Prescriptions: Naproxen [Naprosyn -] 500 mg PO BID PRN #14 tablet MDD 2 PRN Reason: Pain - Referrals Referrals: Shivam Roe MD [Staff Physician] - STAFF,NOT ON [Primary Care Provider] - Rudolph Olson MD [Staff Physician] - - Patient Instructions Additional Instructions: FOLLOW Up with your orthopedist of choice or Dr. ROE for further evaluation FOLLow up with urologist for further evaluation of kidney stone Drink a lot of fluids Avoid lying on your left side It will take time for fractures of rib and scapular to heal avoid strenuous activities or exercise Return to emergency room if any new symptoms develop or symptoms worsen Patient and family voiced understanding of discharge instructions and all questions were answered - Post Discharge Activity
[2017-05-10 14:10] LABS: URINE APPEARANCE CLEAR; URINE BILIRUBIN NEGATIVE (NEGATIVE); URINE BLOOD NEGATIVE (NEGATIVE); URINE COLOR YELLOW; URINE GLUCOSE (UA) NEGATIVE (NEGATIVE); URINE KETONE NEGATIVE (NEGATIVE); URINE LEUK ESTERASE NEGATIVE (NEGATIVE); URINE NITRITE NEGATIVE (NEGATIVE); URINE PROTEIN NEGATIVE (NEGATIVE); URINE UROBILINOGEN NEGATIVE mg/dL (0.2-1.0)
== END 2017-05-10 18:59 | disposition home or self-care (01) ==
LOC: JERFT 12:44
DX: N20.0 Calculus of kidney (principal); S22.42XA Multiple fractures of ribs, left side, initial encounter for closed fracture; S42.192D Fracture of other part of scapula, left shoulder, subsequent encounter for fracture with routine healing; I10 Essential (primary) hypertension; E78.00 Pure hypercholesterolemia, unspecified; W10.8XXD Fall (on) (from) other stairs and steps, subsequent encounter; K59.00 Constipation, unspecified
CPT/HCPCS: 71101-TC; 74176; 81003; 99281-25

== ENCOUNTER 2018-09-21 13:12 | Emergency (ER) | payer OTHER ==
[2018-09-21 13:29] VITALS: BP 120/60; PULSE 65; TEMP 98; BMI 29.8
[2018-09-21] MEDS ORDERED: ACETAMINOPHEN 500 MG TABLET (FP) PO ONE (14:18)
--- NOTE | 2018-09-21 14:18 | PDOC ---
History of Present Illness - General Chief Complaint: Injury Stated Complaint: CUT IN THE R FINGER Time Seen by Provider: 09/21/18 13:55 History Source: Patient Exam Limitations: No Limitations - History of Present Illness Initial Comments: 09/21/18 14:25 68 year old male with history of htn, cholesterol and right shoulder surgery, presents with injury to right index finger today. Patient states he was doing work around the house wearing a glove and his finger was hit by a drill causing laceration. Timing/Duration: reports: this afternoon Severity: Yes: moderate Location: reports: hands Respiratory Risk Factors: reports: no cause identified Associated Symptoms: reports: denies symptoms Past History - Travel Traveled outside of the country in the last 30 days: No - Past Medical History Allergies/Adverse Reactions: Allergies Allergy/AdvReac Type Severity Reaction Status Date / Time No Known Allergies Allergy Verified 09/21/18 13:26 Home Medications: Ambulatory Orders Aspirin [ASA -] 81 mg PO DAILY 07/24/16 Amlodipine Besylate/Benazepril [Lotrel 5-10 mg Capsule] 1 cap PO DAILY 01/29/17 Atorvastatin Ca [Lipitor] 40 mg PO HS 04/02/17 Cephalexin [Keflex] 500 mg PO TID #15 capsule 09/21/18 Cardiac Disorders: Yes (IRREGULAR HEART BEAT) COPD: Yes HTN: Yes Hypercholesterolemia: Yes - Immunization History Immunization Up to Date: No - Suicide/Smoking/Psychosocial Hx Smoking Status: Yes Smoking History: Never smoked Have you smoked in the past 12 months: No Number of Cigarettes Smoked Daily: 0 Information on smoking cessation initiated: No Hx Alcohol Use: No Drug/Substance Use Hx: No Substance Use Type: None Review of Systems - Review of Systems Able to Perform ROS?: Yes Is the patient limited Portuguese proficient: No Constitutional: No: Chills, Fever, Loss of Appetite, Malaise HEENTM: No: Ear Pain, Nose Congestion, Throat Pain, Throat Swelling Respiratory: No: Cough, Orthopnea, Shortness of Breath, Wheezing Cardiac (ROS): No: Lightheadedness, Palpitations ABD/GI: No: Poor Appetite, Poor Fluid Intake, Abdominal cramping : No: Hematuria, Incontinence Musculoskeletal: No: Back Pain Integumentary: Yes: Other (laceration to finger) Neurological: No: Numbness, Paresthesia, Weakness Psychiatric: No: Stressors Endocrine: No: Excessive Sweating, Increased Hunger *Physical Exam - Vital Signs Last Vital Signs Temp Pulse Resp BP Pulse Ox 98 F 65 16 120/60 100 09/21/18 13:27 09/21/18 13:27 09/21/18 13:27 09/21/18 13:27 09/21/18 13:27 - Physical Exam General Appearance: Yes: Nourished, Appropriately Dressed HEENT: positive: JOHN. negative: Muffled/Hoarse voice, Sinus Tenderness Neck: positive: Supple. negative: Lymphadenopathy (R), Lymphadenopathy (L) Respiratory/Chest: positive: Lungs Clear, Normal Breath Sounds Cardiovascular: positive: Regular Rate, S1, S2 Musculoskeletal: positive: Normal Inspection Extremity: positive: Normal Capillary Refill Integumentary: positive: Other (+laceration to right index finger) Neurologic: positive: Fully Oriented, Alert Moderate Sedation - Procedure Monitoring Vital Signs: Procedure Monitoring Vital Signs Temperature 98 F 09/21/18 13:27 Pulse Rate 65 09/21/18 13:27 Respiratory Rate 16 09/21/18 13:27 Blood Pressure 120/60 09/21/18 13:27 O2 Sat by Pulse Oximetry (%) 100 09/21/18 13:27 Procedures - Laceration/Wound Repair Right Finger Wound Length: 5.0 to 7.5 cm Wound Explored: clean Wound's Depth, Shape: irregular Irrigated w/ Saline: Yes Betadine Prep: Yes Anesthesia: 2% Lidocaine Amount of Anesthetic (ccs): 10 Wound Debrided: minimal Wound Repaired With: Sutures Suture Size/Type: 4:0 Number of Sutures: 10 Sterile Dressing Applied: Yes Splint Applied: No Sling Applied: No ED Treatment Course - RADIOLOGY Radiology Studies Ordered: Category Date Time Status FINGER(S) RIGHT [RAD] Stat Radiology 09/21/18 14:17 Ordered Medical Decision Making - Medical Decision Making 09/21/18 14:28 68 year old male with history of htn, cholesterol and right shoulder surgery, presents with injury to right index finger today Plan xray repair tetanus 09/21/18 15:31 xray wet read by me; negative laceration repair with 10 4.0 09/21/18 19:59 final read: no fracture or foreign body noted *DC/Admit/Observation/Transfer Diagnosis at time of Disposition: Finger laceration Qualifiers: Encounter type: initial encounter Finger: index finger Damage to nail status: unspecified Foreign body presence: without foreign body Laterality: right Qualified Code(s): S61.210A - Laceration without foreign body of right index finger without damage to nail, initial encounter - Discharge Dispostion Disposition: HOME Condition at time of disposition: Good Decision to Admit order: No - Prescriptions Prescriptions: Cephalexin [Keflex] 500 mg PO TID #15 capsule - Referrals Schedule a call back: xray of finger Referrals: ON STAFF,NOT [Primary Care Provider] - - Patient Instructions Printed Discharge Instructions: DI for Laceration Repair Additional Instructions: Please keep dressing in place for 24 hours Do not get wet for 24 hours Remove dressing in 24 hours and wash gently daily with soap and water May apply bacitracin or neosporin every other day and apply bandaid as needed Return for suture removal 10/04/18 - Post Discharge Activity Forms/Work/School Notes: Back to Work
[2018-09-21] MEDS ORDERED: DIPHTH,PERTUSS(ACELL),TET 0.5 ML DISP.SYRIN IM ONE ×2 (14:29→14:34)
[2018-09-21] MEDS ORDERED: ACETAMINOPHEN 500 MG TABLET (FP) ONE (14:56)
== END 2018-09-21 15:38 | disposition home or self-care (01) ==
LOC: JERFT 13:12
PROC: 3E0234Z Introduction of Serum, Toxoid and Vaccine into Muscle, Percutaneous Approach (ICD-10-PCS; principal; 2018-09-21)
PROC: 0JQJ0ZZ Repair Right Hand Subcutaneous Tissue and Fascia, Open Approach (ICD-10-PCS; 2018-09-21)
DX: S61.210A Laceration without foreign body of right index finger without damage to nail, initial encounter (principal); W29.8XXA Contact with other powered hand tools and household machinery, initial encounter; Y93.E9 Activity, other interior property and clothing maintenance; Y92.018 Other place in single-family (private) house as the place of occurrence of the external cause; Y99.8 Other external cause status; I10 Essential (primary) hypertension; E78.00 Pure hypercholesterolemia, unspecified
CPT/HCPCS: 12002; 73140-TC-RT-FY; 90471; 90715; 99282-25

== ENCOUNTER 2018-10-03 13:11 | Emergency (ER) | payer OTHER ==
[2018-10-03 13:23] VITALS: BP 145/88; PULSE 71; TEMP 98.5; BMI 28.5
--- NOTE | 2018-10-03 13:34 | PDOC ---
Suture Removal/Wound Check HPI - History of Present Illness Chief Complaint: Suture/Staple Removal(Here) Stated Complaint: STITCHES REMOVAL Time Seen by Provider: 10/03/18 13:17 History Source: Yes: Patient Exam Limitations: Yes: No Limitations - Previous ED Treatment Tetanus Immunization: Yes: Up to Date Antibiotics Prescribed: No Past History - Travel Traveled outside of the country in the last 30 days: No - Past Medical History Allergies/Adverse Reactions: Allergies Allergy/AdvReac Type Severity Reaction Status Date / Time No Known Allergies Allergy Verified 10/03/18 13:15 Home Medications: Ambulatory Orders Aspirin [ASA -] 81 mg PO DAILY 07/24/16 Amlodipine Besylate/Benazepril [Lotrel 5-10 mg Capsule] 1 cap PO DAILY 01/29/17 Atorvastatin Ca [Lipitor] 40 mg PO HS 04/02/17 Cephalexin [Keflex] 500 mg PO TID #15 capsule 09/21/18 Cardiac Disorders: Yes (IRREGULAR HEART BEAT) COPD: Yes HTN: Yes Hypercholesterolemia: Yes - Immunization History Immunization Up to Date: No - Suicide/Smoking/Psychosocial Hx Smoking Status: Yes Smoking History: Never smoked Have you smoked in the past 12 months: No Number of Cigarettes Smoked Daily: 0 Hx Alcohol Use: No Drug/Substance Use Hx: No Substance Use Type: None Suture Removal/Wound Check PE - Physical Exam Laceration/Wound Check Symptoms: reports: None Current Severity Level: None Pain Localization: None Location of Laceration/Wound: right: Finger *Review of Systems - Review of Systems Able to Perform ROS?: Yes Constitutional: No: Chills, Fever HEENTM: No: Ear Pain, Mouth Swelling Cardiac (ROS): No: Chest Pain ABD/GI: No: Abdominal Distended, Poor Appetite, Indigestion, Abdominal cramping *Physical Exam - Vital Signs Last Vital Signs Temp Pulse Resp BP Pulse Ox 98.5 F 71 17 145/88 99 10/03/18 13:15 10/03/18 13:15 10/03/18 13:15 10/03/18 13:15 10/03/18 13:15 - Physical Exam General Appearance: Yes: Nourished, Appropriately Dressed HEENT: positive: TMs Normal, Pharynx Normal Cardiovascular: positive: Regular Rate Musculoskeletal: positive: Other Extremity: positive: Other (wound to right index finger, healed, wound well approximated. ) Moderate Sedation - Procedure Monitoring Vital Signs: Procedure Monitoring Vital Signs Temperature 98.5 F 10/03/18 13:15 Pulse Rate 71 10/03/18 13:15 Respiratory Rate 17 10/03/18 13:15 Blood Pressure 145/88 10/03/18 13:15 O2 Sat by Pulse Oximetry (%) 99 10/03/18 13:15 Medical Decision Making - Medical Decision Making 10/03/18 13:33 68 year old returned for suture removal. No fever, chills or drainage from wound 10 sutures removed intact, no drainage from finger tolerated well *DC/Admit/Observation/Transfer Diagnosis at time of Disposition: Encounter for removal of sutures - Discharge Dispostion Disposition: HOME Condition at time of disposition: Good Decision to Admit order: No - Referrals - Patient Instructions Printed Discharge Instructions: DI for Suture Removal Additional Instructions: Please keep area clean and dry Return for pus drainage, swelling or redness of finger - Post Discharge Activity Forms/Work/School Notes: Back to Work
== END 2018-10-03 13:35 | disposition home or self-care (01) ==
LOC: JERFT 13:11
DX: Z48.817 Encounter for surgical aftercare following surgery on the skin and subcutaneous tissue (principal); Z48.02 Encounter for removal of sutures
CPT/HCPCS: 99281-25

== ENCOUNTER 2019-06-02 18:34 | Emergency (ER) | payer OTHER ==
--- NOTE | 2019-06-02 18:42 | PDOC ---
Rapid Medical Evaluation Time Seen by Provider: 06/02/19 18:39 Medical Evaluation: Allergies Allergy/AdvReac Type Severity Reaction Status Date / Time No Known Allergies Allergy Verified 10/03/18 13:15 06/02/19 18:39 HPI: Fall 05/26 has continued B knee pain and B shoulders s/p R shoulder arthroscopic RTC repair PE: No gross deficits ORDERS:x-rays Discharge Disposition - Diagnosis Knee pain, bilateral, Shoulder pain, bilateral - Referrals - Patient Instructions - Post Discharge Activity
[2019-06-02 18:43] VITALS: BP 120/75; PULSE 65; TEMP 98.3; BMI 29.1
[2019-06-02] MEDS ORDERED: KETOROLAC TROMETHAMINE 60 MG/2 ML VIAL IM ONE (19:35)
--- NOTE | 2019-06-02 19:35 | PDOC ---
History of Present Illness - General Chief Complaint: Injury Stated Complaint: pain Time Seen by Provider: 06/02/19 18:39 History Source: Patient Exam Limitations: No Limitations Past History - Travel Traveled outside of the country in the last 30 days: No Close contact w/someone who was outside of country & ill: No - Past Medical History Allergies/Adverse Reactions: Allergies Allergy/AdvReac Type Severity Reaction Status Date / Time No Known Allergies Allergy Verified 06/02/19 18:43 Home Medications: Ambulatory Orders Aspirin [ASA -] 81 mg PO DAILY 07/24/16 Amlodipine Besylate/Benazepril [Lotrel 5-10 mg Capsule] 1 cap PO DAILY 01/29/17 Atorvastatin Ca [Lipitor] 40 mg PO HS 04/02/17 Cephalexin [Keflex] 500 mg PO TID #15 capsule 09/21/18 Methylprednisolone [Medrol Dose Kendall] 4 mg PO ASDIR #21 tablet 06/02/19 Cardiac Disorders: Yes (IRREGULAR HEART BEAT) COPD: Yes HTN: Yes Hypercholesterolemia: Yes - Immunization History Immunization Up to Date: No - Psycho Social/Smoking Cessation Hx Smoking Status: Yes Smoking History: Never smoked Have you smoked in the past 12 months: No Number of Cigarettes Smoked Daily: 0 Hx Alcohol Use: Yes Drug/Substance Use Hx: No Substance Use Type: None Review of Systems - Review of Systems Able to Perform ROS?: Yes Comments:: 06/02/19 20:21 CONSTITUTIONAL: Absent: fever, chills, diaphoresis, generalized weakness, malaise, loss of appetite HEENT: Absent: rhinorrhea, nasal congestion, throat pain, throat swelling, difficulty swallowing, mouth swelling, ear pain, eye pain, visual Changes CARDIOVASCULAR: Absent: chest pain, loss of consciousness, palpitations, irregular heart rate, peripheral edema RESPIRATORY: Absent: cough, shortness of breath, dyspnea with exertion, orthopnea, wheezing, stridor, hemoptysis GASTROINTESTINAL: Absent: abdominal pain, abdominal distension, nausea, vomiting, diarrhea, constipation, melena, hematochezia GENITOURINARY: Absent: dysuria, frequency, urgency, hesitancy, hematuria, flank pain, genital pain MUSCULOSKELETAL: Present: b/l shoulder pain, b/l knee pain Absent: myalgia, joint swelling SKIN: Absent: rash, itching, pallor HEMATOLOGIC/IMMUNOLOGIC: Absent: easy bleeding, easy bruising, lymphadenopathy, frequent infections ENDOCRINE: Absent: unexplained weight gain, unexplained weight loss, heat intolerance, cold intolerance NEUROLOGIC: Absent: headache, focal weakness or paresthesias, dizziness, unsteady gait, seizure, mental status changes, bladder or bowel incontinence PSYCHIATRIC: Absent: anxiety, depression, suicidal or homicidal ideation, hallucinations. Is the patient limited Japanese proficient: No *Physical Exam - Vital Signs Last Vital Signs Temp Pulse Resp BP Pulse Ox 98.3 F 65 16 120/75 97 06/02/19 18:40 06/02/19 18:40 06/02/19 18:40 06/02/19 18:40 06/02/19 18:40 - Physical Exam Comments: 06/02/19 20:21 GENERAL: Well developed, well nourished. Awake and alert. No acute distress. HEENT: Normocephalic, atraumatic. PERRLA, EOMI. No conjunctival pallor. Sclera are non- icteric. Moist mucous membranes. Oropharynx is clear. NECK: Supple. Full ROM. No JVD. Carotid pulses 2+ and symmetric, without bruits. No thyromegaly. No lymphadenopathy. CARDIOVASCULAR: Regular rate and rhythm. No murmurs, rubs, or gallops. Distal pulses are 2+ and symmetric. PULMONARY: No evidence of respiratory distress. Lungs clear to auscultation bilaterally. No wheezing, rales or rhonchi. ABDOMINAL: Soft. Non-tender. Non-distended. No rebound or guarding. No organomegaly. Normoactive bowel sounds. MUSCULOSKELETAL TTP of the medial aspect of the knees b/l. bilateral shoulder tenderness without obvious deformity. Drop arm test, empty can test, apprehension test negative bilaterally.Normal range of motion at all joints. No CVA tenderness. EXTREMITIES: No cyanosis. No clubbing. No edema. No calf tenderness. SKIN: Warm and dry. Normal capillary refill. No rashes. No jaundice. NEUROLOGICAL: Alert, awake, appropriate. Cranial nerves 2-12 intact. No deficits to light touch and temperature in face, upper extremities and lower extremities. No motor deficits in the in face, upper extremities and lower extremities. Normoreflexic in the upper and lower extremities. Normal speech. Toes are down- going bilaterally. Gait is normal without ataxia. PSYCHIATRIC: Cooperative. Good eye contact. Appropriate mood and affect. Medical Decision Making - Medical Decision Making 06/02/19 20:23 The patient is a 69-year-old male who presents to the ER today for bilateral shoulder and knee pain. He states that he fell approximately 1 week ago and since then has had knee pain and shoulder pain that has gone on resolved. He states he is able to move all extremities but with pain. Denies fevers, chills , numbness and tingling and weakness the affected extremities. He did not hit his head at the time of the fall. He did not lose consciousness. Patient does not take blood thinners. A/P: Bilateral shoulder and bilateral knee pain On exam, patient has bilateral medial knee pain. Special testing of shoulder is negative at this time. X-rays reveal no fractures, arthritis noted to the knees and shoulders. Pain most likely due to arthritis after falling. We will treat with outpatient steroids. Patient to up with orthopedics this week. Discharge home I discussed the physical exam findings, ancillary test results and final diagnoses with the patient. I answered all of the patient's questions. The patient was satisfied with the care received and felt comfortable with the discharge plan and treatment plan. The Patient agrees to follow up with the primary care physician/specialist within 24-72 hours. Return precautions were given. Discharge - Discharge Information Problems reviewed: Yes Clinical Impression/Diagnosis: Knee pain, bilateral Qualifiers: Chronicity: acute Qualified Code(s): M25.561 - Pain in right knee Shoulder pain, bilateral Qualifiers: Chronicity: acute Qualified Code(s): M25.511 - Pain in right shoulder Condition: Stable Disposition: HOME - Admission No - Additional Discharge Information Prescriptions: Methylprednisolone [Medrol Dose Kendall] 4 mg PO ASDIR #21 tablet - Follow up/Referral - Patient Discharge Instructions Patient Printed Discharge Instructions: DI for Shoulder Pain, DI for Knee Pain Additional Instructions: You were evaluated for your knee and shoulder pain today Your pain is most likely due to arthritis Please take the steroids as prescribed Follow up with orthopedics this week for further management of your symptoms Return to the ER for weakness to the extremities, numbness and tingling or if you have any changes in your symptoms Usted fue evaluado por galicia dolor de rodilla y hombro hoy Galicia dolor es ms probable debido a la artritis. [place] los esteroides segn lo prescrito. Yessica un seguimiento con ortopedia esta semana para un mayor manejo de sandra sntomas Regrese a la larry de emergencias por debilidad en las extremidades, entumecimiento y hormigueo o si tiene algn cambio en sandra sntomas. Print Language: NAMIBIAN - Post Discharge Activity Work/Back to School Note: Back to Work
[2019-06-02] MEDS ORDERED: KETOROLAC TROMETHAMINE 60 MG/2 ML VIAL ONE (19:42)
[2019-06-02] MEDS ORDERED: DEXAMETHASONE 4 MG TABLET (FP) PO ONE (19:48)
[2019-06-02] MEDS ORDERED: DEXAMETHASONE SOD PHOSPHATE 10 MG/1 ML VIAL ONE (19:50)
== END 2019-06-02 19:57 | disposition home or self-care (01) ==
LOC: JERFT 18:34
DX: M25.562 Pain in left knee (principal); M25.561 Pain in right knee; M25.512 Pain in left shoulder; M25.511 Pain in right shoulder; W19.XXXA Unspecified fall, initial encounter; Y93.89 Activity, other specified; Y92.89 Other specified places as the place of occurrence of the external cause; Y99.8 Other external cause status; I10 Essential (primary) hypertension; E78.00 Pure hypercholesterolemia, unspecified; J44.9 Chronic obstructive pulmonary disease, unspecified; Z86.79 Personal history of other diseases of the circulatory system
CPT/HCPCS: 73030-TC-LT-FY; 73030-TC-RT-FY; 73562-TC-LT-FY; 73562-TC-RT-FY; 99281-25

== ENCOUNTER 2019-08-27 08:09 | Day surgery (SDC) | payer OTHER ==
[2019-08-26 17:58] VITALS: BMI 29.8
--- NOTE | 2019-08-27 07:58 | HP ---
Satellite [facility] - Chief Complaint Chief Complaint: left shoulder pain - Past Medical History Allergies/Adverse Reactions: Allergies Allergy/AdvReac Type Severity Reaction Status Date / Time No Known Allergies Allergy Verified 08/26/19 17:53 - Current Medications Current Medications: Home Medications Medication Instructions Recorded Aspirin [ASA -] 81 mg PO DAILY 07/24/16 Amlodipine Besylate/Benazepril 1 cap PO HS 01/29/17 [Lotrel 5-10 mg Capsule] Atorvastatin Ca [Lipitor] 40 mg PO HS 04/02/17 Tamsulosin HCl [Flomax] 0.4 mg PO HS 08/26/19 Satellite Physical Exam - Physical Examination General Appearance: Well Nourished, Well Developed, Alert & Oriented x3 ENT: Clear Lung: Normal air movement Extremities: Other (left shoulder- + ttp ,decr rom, + neer, + broussard, + empty can, nvi, MRI + rct) Neurological: Intact, Alert, Oriented Satellite Impression/Plan - Impression/Plan Impression: left shoulder rct Operative Procedure: left shoulder arthroscopy with RCR, KATLIN Date to be Performed: 08/27/19
[2019-08-27] MEDS ORDERED: ROPIVACAINE HCL 0.5% 30ML VIAL ONE (08:48)
[2019-08-27] MEDS ORDERED: DEXAMETHASONE SOD PHOSPHATE/PF 10 MG/ML SDV ONE (08:48)
[2019-08-27] MEDS ORDERED: MIDAZOLAM HCL 2 MG/2 ML SINGLE DOSE VIAL ONE ×2 (09:35)
[2019-08-27] MEDS ORDERED: PROPOFOL 20 ML ONE ×3 (10:02→11:22)
[2019-08-27] MEDS ORDERED: ceFAZolin SODIUM 1 GM VIAL IVPB ONE (10:38)
[2019-08-27] MEDS ORDERED: ceFAZolin SODIUM 1 GM VIAL ONE (10:38)
[2019-08-27] MEDS ORDERED: DEXAMETHASONE SOD PHOSPHATE 4 MG/1 ML VIAL ONE (10:45)
[2019-08-27] MEDS ORDERED: KETOROLAC TROMETHAMINE 30 MG/1 ML VIAL ONE (11:30)
--- NOTE | 2019-08-27 11:44 | OP ---
Operative Note - Note: Operative Date: 08/27/19 ([facility]) Pre-Operative Diagnosis: left shoulder rct Operation: left shoulder arthroscopy with RCR, SAD Post-Operative Diagnosis: Same as Pre-op Surgeon: Samson Ayoub Foreclosure Clerk: Kenney Lutz Anesthesiologist/JEWELRY STORE MANAGER: Antelmo Diaz Anesthesia: General, Local Specimens Removed: shavings Estimated Blood Loss (mls): 5
[2019-08-27] MEDS ORDERED: ONDANSETRON 4 MG/2 ML VIAL IVPUSH PRN (12:06)
[2019-08-27] MEDS ORDERED: oxyCODONE HCL 5 MG TABLET PO PRN (12:06)
[2019-08-27] MEDS ORDERED: LACTATED RINGERS SOLUTION 1,000 ML IV SCH (12:15)
[2019-08-27 14:03] VITALS: TEMP 97.4
[2019-08-27 14:09] VITALS: BP 135/76; PULSE 65
--- NOTE | 2019-08-27 15:19 | OP ---
DATE OF OPERATION: 08/27/2019 PREOPERATIVE DIAGNOSIS: Left rotator cuff tear. POSTOPERATIVE DIAGNOSIS: Left rotator cuff tear. PROCEDURE: Left rotator cuff repair arthroscopically with subacromial decompression. SURGICAL ATTENDING: Samson Ayoub MD PHYSICIAN'S ASSISTANT: HAR[place] ANESTHESIA: Regional and general. CLOSURE: Arthrex SpeedBridge and SwiveLocks for rotator cuff and 3-0 nylon for skin. ESTIMATED BLOOD LOSS: Negligible. COMPLICATIONS: None. CONDITION: To recovery room in stable condition. DESCRIPTION OF PROCEDURE: Patient was taken to the operating room on August 27, 2019. General anesthesia, as well as regional was administered by the anesthesiologist. IV Kefzol was administered prophylactically prior to the case. Patient was placed in the beach-chair position with all prominences well padded. Left shoulder area was prepped and draped in the usual sterile fashion. First, a diagnostic arthroscopy of the glenohumeral joint was performed. The posterior portal was made two fingerbreadths below the acromion first with a 15 blade followed by a blunt trocar. An anterior portal was made in the anterior triangle first with a spinal needle followed by a 15 blade and blunt trocar. Exam of the glenohumeral joint revealed the following: Intact glenoid and humeral head articular cartilage, intact labrum circumferentially, no loose bodies in the axillary pouch. The subscapularis was intact through its insertion. The biceps tendon was intact. It did have some tearing. A shaver was introduced anteriorly to debride away some of the frayed tissue. Fifty percent of the biceps tendon was still intact and was left in situ. Looking superiorly, the supraspinatus and infraspinatus were torn and were somewhat retracted. The fluid was drained from the shoulder and the trocars were removed. The anterior-posterior trocars were redirected in the subacromial space. An accessory lateral portal was made with a 15 blade followed by a blunt trocar. A large amount of bursal tissue in the subacromial space was debrided using the shaver and the ArthroCare device. The coracoacromial ligament was identified and detached off the anterior acromion and was visualized to drop inferiorly and was further debrided. A subacromial spur was encountered and acromioplasty was then performed using the Acromionizer bur, raising the acromion to the appropriate height. Looking inferiorly, the humeral head was encased with fibrous tissue. This was all debrided using the shaver and the ArthroCare device. This exposed a left rotator cuff tear off the greater tuberosity. After debriding soft tissue encasing the rotator cuff, traction on the rotator cuff revealed that it was indeed mobile and able to be reduced to the greater tuberosity. The tuberosity itself was cleared of soft tissue with the shaver and a thin layer of bone was removed to have a nice bleeding surface for reimplantation. Two preloaded SwiveLock anchors were malleted in the articular margin, one anteriorly and one posteriorly, and then screwed to get excellent fixation. These sutures were passed through the lateral portal. They were then individually passed from inferiorly to superiorly through the rotator cuff in a fanned-out fashion from anterior to posterior. Each stitch was individually docked in the anterior portal, after they were passed from the lateral portal. One anterior limb and one posterior limb were then passed through the eyelet hole of another SwiveLock anchor and were used to fixate this in the posterior aspect of the greater tuberosity. The remaining one anterior and one posterior limb were then passed through another SwiveLock and passed through a more anterior, but lateral row SwiveLock. This achieved excellent fixation and matting down of the rotator cuff to the greater tuberosity. A small excess area of rotator cuff needed to be fixated more anteriorly. A FiberWire was placed in horizontal mattress formation and then was fixated to an individual SwiveLock in a more anterior fashion just anterior to the biceps tendon, but into the anterior aspect of the greater tuberosity. All sutures were cut flush. Probing revealed excellent fixation of the rotator cuff. Range of motion of the shoulder revealed good stability throughout the range of motion and good space in the subacromial region. The fluid was drained from the shoulder. All the trocars were removed, and the portal sites were closed with 3-0 nylon, followed by an Aquacel dressing, followed by a shoulder immobilizer on the left upper extremity. Patient was awakened from anesthesia and transferred to recovery room in stable condition. No complications. Estimated blood loss negligible. Mariya SANDOVAL/[id number]
--- NOTE | 2019-08-30 16:36 | PATH ---
Surgical Pathology Report Patient Name: DANETTE POE Med. Rec. #: [id number] /Age/Gender: 1950 (Age: 69) / M Account: [id number] Location: [facility] SURGICAL Taken: 08/27/2019 Received: 08/27/2019 Reported: 08/30/2019 Physicians: Samson Ayoub M.D. Specimen(s) Received LEFT SHOULDER SHAVINGS Clinical History Left shoulder tear Final Diagnosis SHOULDER SHAVINGS, LEFT, ARTHROSCOPY: FRAGMENTS OF BENIGN CARTILAGE, BONE, DENSE FIBROCONNECTIVE TISSUE, ADIPOSE TISSUE, AND SKELETAL MUSCLE. Electronically Signed Liyah Parra M.D. Gross Description Received in formalin, labeled "left shoulder shavings," is a 3.5 x 3.0 x 0.4 cm. aggregate of eli-yellow soft tissue fragments. A patient relations representative portion is submitted in one cassette. /08/27/201908/27/2019
== END 2019-08-27 13:50 | disposition home or self-care (01) ==
LOC: JASU-SURG 08:09
PROVIDERS: ATTEND Orthopaedic Surgery
PROC: 0RNK4ZZ Release Left Shoulder Joint, Percutaneous Endoscopic Approach (ICD-10-PCS; principal; 2019-08-27 10:00)
PROC: 0LQ24ZZ Repair Left Shoulder Tendon, Percutaneous Endoscopic Approach (ICD-10-PCS; 2019-08-27 10:00)
DX: M75.102 Unspecified rotator cuff tear or rupture of left shoulder, not specified as traumatic (principal)
CPT/HCPCS: 88304-TC; 94760

== ENCOUNTER 2023-01-31 12:50 | Emergency (ER) | payer OTHER ==
[2023-01-31 13:13] VITALS: BP 121/76; PULSE 66; RESP 17; TEMP 98.1; BMI 29.8
== END 2023-01-31 14:29 | disposition home or self-care (01) ==
LOC: JERFT 12:50
DX: H10.9 Unspecified conjunctivitis (principal)
CPT/HCPCS: 99283-25

== ENCOUNTER 2023-04-12 11:57 | Emergency (ER) | payer OTHER ==
[2023-04-12 12:11] VITALS: BMI 30.5
[2023-04-12] MEDS ORDERED: ACETAMINOPHEN 325 MG TABLET (FP) PO ONE (12:29)
[2023-04-12] MEDS ORDERED: ACETAMINOPHEN 325 MG TABLET (FP) ONE (12:39)
[2023-04-12 13:07] VITALS: BP 132/69; PULSE 58; RESP 16; TEMP 98.3
[2023-04-12 13:16] LABS: EOS % 2.9 % (0-4.5); HEMATOCRIT 38.1 % (35.4-49); LYMPH % 51.3 % (8-40); MCH 26.6 pg (25.7-33.7); MEAN CELL VOLUME 78.3 fl (80-96); MEAN PLT VOLUME 9.5 fl (7.5-11.1); MONO % 9.1 % (3.8-10.2); NEUT % 35.7 % (42.8-82.8); PLATELET COUNT 156 10^3/uL (134-434); RBC 4.87 M/mm3 (4.00-5.60); RDW 15.2 % (11.9-15.9); WHITE BLOOD COUNT 4.9 K/mm3 (4.0-10.0)
[2023-04-12 13:21] LABS: INR 1.06 (0.83-1.09); PROTHROMBIN TIME (PATIENT) 12.3 SEC (9.7-13.0)
[2023-04-12 13:24] LABS: ACTIVATED PTT 28.7 SECONDS (25.2-36.5)
[2023-04-12] MEDS ORDERED: FAMOTIDINE 20 MG/50 ML IVPB 20 MG/50 ML MG IVPB ONE (13:33)
[2023-04-12 13:34] LABS: POTASSIUM 4.3 mmol/L (3.5-5.1)
[2023-04-12 13:36] LABS: ALBUMIN 3.5 g/dl (3.4-5.0); BLOOD UREA NITROGEN 12.7 mg/dL (7-18); CALCIUM 9.4 mg/dL (8.5-10.1)
[2023-04-12 13:39] LABS: CREATININE 1.1 mg/dL (0.55-1.3)
[2023-04-12 13:41] LABS: BILIRUBIN,TOTAL 0.8 mg/dL (0.2-1); TOT PROT 6.1 g/dl (6.4-8.2)
[2023-04-12] MEDS: MAG HYDROX/AL HYDROX/SIMETH 30 ML UNIT-DOSE CUP PO ONE ×2 (13:45→13:53)
[2023-04-12] MEDS ORDERED: MAG HYDROX/AL HYDROX/SIMETH 30 ML UNIT-DOSE CUP ONE (13:46)
[2023-04-12] MEDS ORDERED: FAMOTIDINE 10 MG/ML VIAL IVPB ONE (13:47)
== END 2023-04-12 15:26 | disposition home or self-care (01) ==
LOC: JER 11:57
PROC: 3E033GC Introduction of Other Therapeutic Substance into Peripheral Vein, Percutaneous Approach (ICD-10-PCS; principal; 2023-04-12)
DX: R07.9 Chest pain, unspecified (principal)
CPT/HCPCS: 36415; 71046-TC-FY; 80053; 82550; 82553; 83735; 84484; 85025; 85610; 85730; 93005; 93010; 96365; 99285-25

== ENCOUNTER 2024-02-24 13:34 | Emergency (ER) | payer OTHER ==
[2024-02-24 13:52] VITALS: BP 136/78; PULSE 60; RESP 18; TEMP 98.3; BMI 30.5
[2024-02-24 15:01] LABS: EOS % 3.2 % (0-4.5); HEMATOCRIT 39.5 % (35.4-49); HEMOGLOBIN 13.3 GM/dL (11.7-16.9); LYMPH % 43.4 % (8-40); MCH 26.6 pg (25.7-33.7); MCHC 33.7 g/dl (32.0-35.9); MEAN CELL VOLUME 78.8 fl (80-96); MEAN PLT VOLUME 8.7 fl (7.5-11.1); MONO % 9.2 % (3.8-10.2); NEUT % 43.2 % (42.8-82.8); PLATELET COUNT 144 10^3/uL (134-434); RBC 5.01 M/mm3 (4.00-5.60); WHITE BLOOD COUNT 5.4 K/mm3 (4.0-10.0)
[2024-02-24 15:20] LABS: POTASSIUM 4.2 mmol/L (3.5-5.1)
[2024-02-24 15:22] LABS: ALBUMIN 3.5 g/dl (3.4-5.0); BLOOD UREA NITROGEN 11.6 mg/dL (7-18); CALCIUM 9.2 mg/dL (8.5-10.1)
[2024-02-24 15:27] LABS: BILIRUBIN,TOTAL 0.8 mg/dL (0.2-1); TOT PROT 6.2 g/dl (6.4-8.2)
== END 2024-02-24 16:26 | disposition home or self-care (01) ==
LOC: JER 13:34
DX: R07.89 Other chest pain (principal); M79.662 Pain in left lower leg; Z20.822 Contact with and (suspected) exposure to COVID-19
CPT/HCPCS: 0241U-QW; 36415; 71046-TC-FY; 80053; 84484; 85025; 99285-25

== ENCOUNTER 2025-03-14 10:26 | Emergency (ER) | payer OTHER ==
[2025-03-14 10:52] VITALS: TEMP 97.8; BMI 29.8
[2025-03-14 12:09] LABS: ABSOLUTE IMMATURE GRANULOCYTES 0.07 x10^3/uL (0.0-0.031); BASOPHILS # 0.05 x10^3/uL (0.01-0.08); EOSINOPHIL % 1.3 % (0.8-7.0); EOSINOPHILS # 0.10 x10^3/uL (0.04-0.54); MCHC 33.9 g/dl (32.3-36.5); MEAN CELL VOLUME 76.4 fl (79.0-92.2); MEAN PLT VOLUME 10.0 fl (9.4-12.4); MONOCYTE # 0.60 x10^3/uL (0.30-0.82); MONOCYTE % 7.7 % (5.3-12.2); RDW 14.5 % (12.2-16.6)
[2025-03-14 12:12] LABS: EPI CELLS 9 /uL (0-25.1); HYALINE CASTS 0 /uL (0-3.1); URINE APPEARANCE CLEAR; URINE BACTERIA 8 /uL (0-1359); URINE BILIRUBIN NEGATIVE (NEGATIVE); URINE COLOR YELLOW; URINE GLUCOSE (UA) NEGATIVE (NEGATIVE); URINE KETONE NEGATIVE (NEGATIVE); URINE LEUK ESTERASE TRACE (NEGATIVE); URINE NITRITE NEGATIVE (NEGATIVE); URINE PROTEIN NEGATIVE (NEGATIVE); URINE RBC 13 /uL (0-23.9); URINE UROBILINOGEN 0.2 mg/dL (0.2-1.0); URINE WBC 13 /uL (0-25.8)
[2025-03-14 13:44] LABS: ALK PHOS 98 U/L (45-117); CO2 26 mmol/L (21-32); CREATININE 1.1 mg/dL (0.55-1.3); GLUCOSE,RANDOM 109 mg/dL (74-106); SGOT/AST 20 U/L (15-37); SGPT/ALT 40 U/L (13-61); TOT PROT 6.5 g/dl (6.4-8.2)
[2025-03-14 13:46] LABS: HIV INTERPRETATION NEGATIVE (NEGATIVE)
[2025-03-14 13:47] LABS: HCV DIAGNOSTIC IN-HOUSE W/RFLX NON-REACTIVE (NONREACTIVE)
[2025-03-14 15:06] VITALS: BP 142/77; PULSE 85; RESP 15
== END 2025-03-14 15:06 | disposition home or self-care (01) ==
LOC: JER 10:26
DX: N45.1 Epididymitis (principal); N50.812 Left testicular pain
CPT/HCPCS: 36415; 76870-TC; 80053; 81003; 85025; 86803; 87086; 87389; 87491; 87591; 99284-25